=== PATIENT | female | born 1970 | race Caucasian/White ===

== ENCOUNTER 2019-10-24 10:39 | Outpatient (CLI) | payer BC ==
[~2019-10-24 10:39] MED LIST: REGADENOSON 0.4 MG/5 ML SYRINGE ONE
== END 2019-10-24 23:59 | disposition home or self-care (01) ==
LOC: CFH 10:39 → RAD 23:59
PROVIDERS: ATTEND Internal Medicine Cardiovascular Disease
DX: R94.31 Abnormal electrocardiogram [ECG] [EKG] (principal); I10 Essential (primary) hypertension
CPT/HCPCS: 78452; 93017; 93306; A9502; J2785